=== PATIENT | male | born 1935 | race Caucasian/White ===

== ENCOUNTER 2016-11-23 20:09 | Emergency (ER) | payer MEDICARE, BC ==
--- NOTE | 2016-11-23 20:53 | EDM.PDOC ---
ED HPI GENERAL MEDICAL PROBLEM - General Chief Complaint: Cardiovascular Problem Stated Complaint: CHEST PAIN Time Seen by Provider: 11/23/16 20:29 Source of Information: Reports: Patient, Family (, son), RN Notes Reviewed History Limitations: Reports: No Limitations - History of Present Illness INITIAL COMMENTS - FREE TEXT/NARRATIVE: The patient states that he developed substernal chest discomfort around 18:30 while watching TV. It came on gradually. He is unable to characterize the sensation other than it feels like "air" or "pressure". He states that it is a discomfort, not a pain. He reports having very slight shortness of breath, but no nausea, diaphoresis, or anxiety. The patient took a single sublingual nitroglycerin around 18:45, which initially decreased his discomfort, but it increased again around 20:00. At this time, he is virtually asymptomatic. The patient states that he has had similar discomfort numerous times over the past several years, typically after eating something spicy. The patient underwent a coronary angiogram at [facility] on Sunday, 2016, which apparently found some coronary artery disease, but not significant enough to require stenting. 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 Chest Pain Score (Numeric/FACES): 3 - Related Data Allergies Allergy/AdvReac Type Severity Reaction Status Date / Time ciprofloxacin Allergy Hives Verified 11/23/16 20:16 levofloxacin Allergy Hives Verified 11/23/16 20:16 Penicillins Allergy Hives Verified 11/23/16 20:16 sulfamethoxazole Allergy Hives Verified 11/23/16 20:16 [From Bactrim] sulfanilamide [Sulfanilamide] Allergy Hives Verified 11/23/16 20:16 trimethoprim [From Bactrim] Allergy Hives Verified 11/23/16 20:16 zuclopenthixol Allergy Hives Verified 11/23/16 20:16 Home Meds: Home Meds Lisinopril 10 mg PO DAILY 04/05/16 [History] atorvaSTATin [Lipitor] 20 mg PO DAILY 04/05/16 [History] Aspirin [Ecotrin] 81 mg PO DAILY 11/23/16 [History] Isosorbide Mononitrate [Isosorbide Mononitrate ER] 30 mg PO DAILY 11/23/16 [ History] Metoprolol Tartrate 25 mg PO DAILY 11/23/16 [History] Nitroglycerin [Nitrostat] 0.4 mg SL Q5M 11/23/16 [History] Past Medical History HEENT History: Reports: Allergic Rhinitis Cardiovascular History: Reports: CAD, High Cholesterol, Hypertension Respiratory History: Reports: Sleep Apnea (nightly CPAP) Gastrointestinal History: Reports: GERD Psychiatric History: Reports: Depression Endocrine/Metabolic History: Reports: Obesity/BMI 30+ Oncologic (Cancer) History: Reports: Colon, Lung, Prostate - Past Surgical History Respiratory Surgical History: Reports: Lung Resection (Left upper lobectomy) GI Surgical History: Reports: Appendectomy, Colon (Hemicolectomy with colostomy , reversed), Colonoscopy, Other (See Below) (Undescended testicle) Male Surgical History: Reports: Prostatectomy Social & Family History - Tobacco Use Smoking Status *Q: Former Smoker Years of Tobacco use: 20 Packs/Tins Daily: 1 Used Tobacco, but Quit: Yes Month Tobacco Last Used: Quit early Second Hand Smoke Exposure: Yes - Alcohol Use Alcohol Use History: No - Recreational Drug Use Recreational Drug Use: No - Living Situation & Occupation Living situation: Reports: , with Spouse, with Family (Son) Occupation: Retired ED ROS GENERAL - Review of Systems Review Of Systems: See Below Constitutional: Reports: No Symptoms HEENT: Reports: No Symptoms Respiratory: Reports: No Symptoms Cardiovascular: Reports: No Symptoms Endocrine: Reports: No Symptoms GI/Abdominal: Reports: No Symptoms : Reports: No Symptoms Musculoskeletal: Reports: No Symptoms Skin: Reports: No Symptoms Neurological: Reports: No Symptoms Psychiatric: Reports: No Symptoms Hematologic/Lymphatic: Reports: No Symptoms Immunologic: Reports: No Symptoms ED EXAM, GENERAL - Physical Exam Exam: See Below Exam Limited By: No Limitations General Appearance: Alert, WD/WN, No Apparent Distress Eye Exam: Bilateral Eye: Normal Inspection Ears: Normal External Exam, Hearing Grossly Normal Nose: Normal Inspection, No Blood Throat/Mouth: Normal Inspection, Normal Lips, Normal Voice, No Airway Compromise Head: Atraumatic, Normocephalic Neck: Normal Inspection, Full Range of Motion Respiratory/Chest: No Respiratory Distress, Lungs Clear, Normal Breath Sounds, No Accessory Muscle Use, Chest Non-Tender Cardiovascular: Normal Peripheral Pulses, Regular Rate, Rhythm, No Gallop, No JVD, No Murmur, No Rub Peripheral Pulses: 4+: Radial (L), Radial (R) GI/Abdominal: Normal Bowel Sounds, Soft, Non-Tender, No Organomegaly, No Distention, No Abnormal Bruit, No Mass, Other (Obese) (Male) Exam: Deferred Rectal (Males) Exam: Deferred Back Exam: Normal Inspection, Full Range of Motion, NT Extremities: Normal Inspection, Normal Range of Motion, No Pedal Edema, Normal Capillary Refill Neurological: Alert, Oriented, Normal Cognition, No Motor/Sensory Deficits Psychiatric: Normal Affect Skin Exam: Warm, Dry, Intact, Normal Color, No Rash Lymphatic: No Adenopathy EKG INTERPRETATION EKG Date: 11/23/16 Time: 20:15 Rhythm: NSR Rate (Beats/Min): 84 [place]: Normal P-Wave: Present (1st degree AVB) QRS: Normal ST-T: Normal QT: Normal Comparison: NA - No Prior EKG EKG Interpretation Comments: 3 PVC's Course - Vital Signs Last Recorded V/S: Last Vital Signs Temp 36.9 C 11/23/16 20:12 Pulse 74 11/23/16 21:17 Resp 18 11/23/16 21:17 BP 154/76 H 11/23/16 21:17 Pulse Ox 92 L 11/23/16 21:17 - Orders/Labs/Meds Orders: Active Orders 24 hr Category Date Time Status EKG 12 Lead [EKG Documentation Completion] [RC] STAT Care 11/23/16 20:27 Active Chest 1V Frontal [CR] Stat Exams 11/23/16 20:28 Taken Labs: Laboratory Tests 11/23/16 11/23/16 11/23/16 Range/Units 20:15 20:15 20:15 WBC 9.84 H (4.23-9.07) K/mm3 RBC 4.35 L (4.63-6.08) M/mm3 Hgb 12.7 L (13.7-17.5) gm/L Hct 39.0 L (40.1-51.0) % MCV 89.7 (79.0-92.2) fl MCH 29.2 (25.7-32.2) pg MCHC 32.6 (32.2-35.5) g/dl RDW Std Deviation 43.0 (35.1-43.9) fL Plt Count 244 (163-337) K/mm3 MPV 9.9 (9.4-12.3) fl Neut % (Auto) 67.1 (34.0-67.9) % Lymph % (Auto) 20.3 L (21.8-53.1) % [place] % (Auto) 11.0 (5.3-12.2) % Eos % (Auto) 1.2 (0.8-7.0) Baso % (Auto) 0.3 (0.1-1.2) % Neut # (Auto) 6.60 H (1.78-5.38) K/mm3 Lymph # (Auto) 2.00 (1.32-3.57) K/mm3 [place] # (Auto) 1.08 H (0.30-0.82) K/mm3 Eos # (Auto) 0.12 (0.04-0.54) K/mm3 Baso # (Auto) 0.03 (0.01-0.08) K/mm3 PT (8.0-13.0) SECONDS INR APTT (22-36) SECONDS D-Dimer, Quantitative < 0.19 L (0.19-0.59) mg/L Sodium 138 (136-145) mEq/L Potassium 4.0 (3.5-5.1) mEq/L Chloride 105 (98-107) mEq/L Carbon Dioxide 27 (21-32) mEq/L Anion Gap 10.0 (5-15) BUN 23 H (7-18) mg/dL Creatinine 1.4 H (0.7-1.3) mg/dL Est Cr Clr Drug Dosing TNP Estimated GFR (MDRD) 49 (>60) mL/min BUN/Creatinine Ratio 16.4 (14-18) Glucose 204 H (83-115) mg/dL Calcium 9.1 (8.5-10.1) mg/dL Total Bilirubin 0.3 (0.2-1.0) mg/dL AST 16 (15-37) U/L ALT 24 (16-63) U/L Alkaline Phosphatase 74 (46-116) U/L Troponin I < 0.017 (0.00-0.056) ng/mL B-Natriuretic Peptide (0-100) pg/mL Total Protein 7.7 (6.4-8.2) g/dl Albumin 3.6 (3.4-5.0) g/dl Globulin 4.1 gm/dL Albumin/Globulin Ratio 0.9 L (1-2) 11/23/16 11/23/16 Range/Units 20:15 20:15 WBC (4.23-9.07) K/mm3 RBC (4.63-6.08) M/mm3 Hgb (13.7-17.5) gm/L Hct (40.1-51.0) % MCV (79.0-92.2) fl MCH (25.7-32.2) pg MCHC (32.2-35.5) g/dl RDW Std Deviation (35.1-43.9) fL Plt Count (163-337) K/mm3 MPV (9.4-12.3) fl Neut % (Auto) (34.0-67.9) % Lymph % (Auto) (21.8-53.1) % [place] % (Auto) (5.3-12.2) % Eos % (Auto) (0.8-7.0) Baso % (Auto) (0.1-1.2) % Neut # (Auto) (1.78-5.38) K/mm3 Lymph # (Auto) (1.32-3.57) K/mm3 [place] # (Auto) (0.30-0.82) K/mm3 Eos # (Auto) (0.04-0.54) K/mm3 Baso # (Auto) (0.01-0.08) K/mm3 PT 11.4 (8.0-13.0) SECONDS INR 1.04 APTT 31 (22-36) SECONDS D-Dimer, Quantitative (0.19-0.59) mg/L Sodium (136-145) mEq/L Potassium (3.5-5.1) mEq/L Chloride (98-107) mEq/L Carbon Dioxide (21-32) mEq/L Anion Gap (5-15) BUN (7-18) mg/dL Creatinine (0.7-1.3) mg/dL Est Cr Clr Drug Dosing Estimated GFR (MDRD) (>60) mL/min BUN/Creatinine Ratio (14-18) Glucose (83-115) mg/dL Calcium (8.5-10.1) mg/dL Total Bilirubin (0.2-1.0) mg/dL AST (15-37) U/L ALT (16-63) U/L Alkaline Phosphatase (46-116) U/L Troponin I (0.00-0.056) ng/mL B-Natriuretic Peptide 385 H (0-100) pg/mL Total Protein (6.4-8.2) g/dl Albumin (3.4-5.0) g/dl Globulin gm/dL Albumin/Globulin Ratio (1-2) - Radiology Interpretation Free Text/Narrative:: Portable chest radiograph appears to be grossly unremarkable. Cardiac silhouette is within normal limits. No pulmonary vascular congestion. No pleural effusions. No focal infiltrate. No pneumothorax. Formal read per the Radiologist pending. - Re-Assessments/Exams Free Text/Narrative Re-Assessment/Exam: 11/23/16 21:35 Test results discussed with the patient and his . From a cardiac standpoint , today's workup is unremarkable. While his presentation was concerning for cardiac etiology, he had an unremarkable coronary angiogram just a few weeks ago. The patient's blood glucose was found to be elevated at 204, despite no known history of diabetes. The patient states that he is feeling briskly fine at this time. I will discharge him home, but I'm recommending that he contact his [employer]in[employer] (Dr. Hill?) in the morning. I am also recommending that he follow-up with his PCP, Dr. Sena, for diabetes evaluation. Departure - Departure Time of Disposition: 21:37 Disposition: Home, Self-Care 01 Condition: Good Clinical Impression: Chest pain Instructions: Nonspecific Chest Pain, [id number] Referrals: Yonas Sena MD [Primary Care Provider] - Mello Hill DO [Ordering Only Provider] - Forms: ED Department Discharge Additional Instructions: You were seen in the emergency room for chest pain. Workup in the ER included blood work, an ECG, and a chest x-ray. From a cardiac standpoint, your workup was unremarkable. It does not appear that you have suffered a heart attack. Although unlikely, it is still possible that your pain was cardiac in nature, therefore we recommend that you contact your [employer]in[employer], Dr. Mello Hill, tomorrow morning. Your blood glucose was found to be elevated at 204. You may have diabetes. We recommend that you follow-up with your PCP, Dr. Sena, at the next available appointment. If any other problems, including recurrence of your chest pain, please do not hesitate to return to the ER. - My Orders Last 24 Hours: My Active Orders 11/23/16 20:27 EKG 12 Lead [EKG Documentation Completion] [RC] STAT - Assessment/Plan Last 24 Hours: My Active Orders 11/23/16 20:27 EKG 12 Lead [EKG Documentation Completion] [RC] STAT
[2016-11-23 21:18] VITALS: BP 154/76
--- NOTE | 2016-11-24 09:37 | CR ---
Chest: Frontal view of the chest was obtained. Comparison: No previous chest x-ray, previous chest CT of 04/14/14 is available. Findings: Heart size slightly enlarged but accentuated from portable technique. Mild shifting of the heart into the left chest is seen which is stable from prior chest CT. Mild areas of increased density within the left chest most likely due to areas of fibrosis. I do not believe any acute infiltrates are present. Bony structures appear grossly intact. Impression: 1. Findings as described above believed to be stable from prior chest CT. 2. Nothing acute is definitely appreciated. Diagnostic code #2
== END 2016-11-23 21:56 | disposition home or self-care (01) ==
LOC: JD.ED 20:09 → SUPCPDRO 20:09 → JD.ED 21:56
DX: R07.2 Precordial pain (principal); I10 Essential (primary) hypertension; I25.10 Atherosclerotic heart disease of native coronary artery without angina pectoris; R06.02 Shortness of breath; E78.00 Pure hypercholesterolemia, unspecified; G47.30 Sleep apnea, unspecified; K21.9 Gastro-esophageal reflux disease without esophagitis; F41.9 Anxiety disorder, unspecified; E66.9 Obesity, unspecified; Z90.49 Acquired absence of other specified parts of digestive tract; Z85.038 Personal history of other malignant neoplasm of large intestine; Z85.46 Personal history of malignant neoplasm of prostate; Z87.891 Personal history of nicotine dependence; Z90.79 Acquired absence of other genital organ(s); Z79.82 Long term (current) use of aspirin; Z79.899 Other long term (current) drug therapy; Z88.0 Allergy status to penicillin; Z88.1 Allergy status to other antibiotic agents; Z88.2 Allergy status to sulfonamides
CPT/HCPCS: 36415; 71010; 71010-26; 80053; 83880; 84484; 85025; 85379; 85610; 85730; 93005; 99284; 99285-25

== ENCOUNTER 2018-08-12 06:20 | Emergency (ER) | payer MEDICARE, BC ==
--- NOTE | 2018-08-12 06:56 | EDM.PDOC ---
<SkylerShaheen oconnor Momo - Last Filed: 08/12/18 08:46> ED HPI GENERAL MEDICAL PROBLEM - General Chief Complaint: General Stated Complaint: CHEST/STOMACH PAIN Time Seen by Provider: 08/12/18 06:40 Source of Information: Reports: Patient, RN Notes Reviewed - History of Present Illness INITIAL COMMENTS - FREE TEXT/NARRATIVE: 83 year old male with onset of upper abd achy pain last evening that has continued through the night. The pain became more severe at home a a couple of hrs ago, now somewhat better. He has had nausea with this, no vomiting. No current fever or chills. He was coughing quite a lot about 4 to 5 days ago but that is now better. No current chest pain or difficulty breathing. Last BM yesterday. He feels "bloated". Not passing gas this morning, felt better after bleching". History just evaluated at [facility] last week, had colonoscopy which was normal as well as other workup. Was a follow-up visit from colon cancer about 8- 10 years ago. - Related Data Allergies Allergy/AdvReac Type Severity Reaction Status Date / Time ciprofloxacin Allergy Hives Verified 08/12/18 06:29 levofloxacin Allergy Hives Verified 08/12/18 06:29 Penicillins Allergy Hives Verified 08/12/18 06:29 Quinolones Allergy Burning Verified 08/12/18 06:29 sulfamethoxazole Allergy Hives Verified 08/12/18 06:29 [From Bactrim] sulfanilamide [Sulfanilamide] Allergy Hives Verified 08/12/18 06:29 trimethoprim [From Bactrim] Allergy Hives Verified 08/12/18 06:29 Home Meds: Home Meds RX: atorvaSTATin [Lipitor] 20 mg PO DAILY 04/05/16 [History] RX: Aspirin [Ecotrin] 81 mg PO DAILY 11/23/16 [History] RX: Isosorbide Mononitrate [Isosorbide Mononitrate ER] 30 mg PO DAILY 11/23/16 [ History] RX: Metoprolol Tartrate 25 mg PO BID 11/23/16 [History] RX: Nitroglycerin [Nitrostat] 0.4 mg SL Q5M 11/23/16 [History] RX: Cholecalciferol (Vitamin D3) [Vitamin D3] 1,000 unit PO DAILY 03/06/18 [ History] RX: Losartan [Cozaar] 50 mg PO DAILY 03/06/18 [History] traMADol HCl [Ultram] 50 - 100 mg PO Q6H PRN #15 tablet 03/07/18 [Rx] ED ROS GENERAL - Review of Systems Review Of Systems: See Below Constitutional: Denies: Fever, Chills, Diaphoresis HEENT: Denies: Throat Pain Respiratory: Reports: Cough. Denies: Shortness of Breath, Pleuritic Chest Pain Cardiovascular: Denies: Chest Pain GI/Abdominal: Reports: Abdominal Pain, Nausea. Denies: Constipation, Diarrhea, Vomiting Skin: Reports: No Symptoms Neurological: Reports: Dizziness Course - Vital Signs Last Recorded V/S: Last Vital Signs Temp 36.2 C 08/12/18 06:26 Pulse 86 08/12/18 09:29 Resp 17 08/12/18 09:29 BP 184/80 H 08/12/18 09:29 Pulse Ox 93 L 08/12/18 09:29 - Orders/Labs/Meds Orders: Active Orders 24 hr Category Date Time Status EKG Documentation Completion [RC] ASDIRECTED Care 08/12/18 06:35 Active Peripheral IV Care [RC] . DIRECTED Care 08/12/18 07:04 Active Peripheral IV Insertion Adult [OM.PC] Stat Oth 08/12/18 07:04 Ordered EKG 12 Lead [EK] Stat Ther 08/12/18 06:35 Ordered Labs: Laboratory Tests 08/12/18 08/12/18 08/12/18 Range/Units 07:30 07:30 07:30 WBC 12.38 H (4.23-9.07) K/mm3 RBC 4.91 (4.63-6.08) M/mm3 Hgb 14.0 (13.7-17.5) gm/L Hct 43.6 (40.1-51.0) % MCV 88.8 (79.0-92.2) fl MCH 28.5 (25.7-32.2) pg MCHC 32.1 L (32.2-35.5) g/dl RDW Std Deviation 42.4 (35.1-43.9) fL Plt Count 238 (163-337) K/mm3 MPV 9.4 (9.4-12.3) fl Neut % (Auto) 87.2 H (34.0-67.9) % Lymph % (Auto) 6.9 L (21.8-53.1) % [place] % (Auto) 5.3 (5.3-12.2) % Eos % (Auto) 0.2 L (0.8-7.0) Baso % (Auto) 0.2 (0.1-1.2) % Neut # (Auto) 10.78 H (1.78-5.38) K/mm3 Lymph # (Auto) 0.85 L (1.32-3.57) K/mm3 [place] # (Auto) 0.66 (0.30-0.82) K/mm3 Eos # (Auto) 0.03 L (0.04-0.54) K/mm3 Baso # (Auto) 0.03 (0.01-0.08) K/mm3 Manual Slide Review Abnormal smear Sodium 139 (136-145) mEq/L Potassium 4.1 (3.5-5.1) mEq/L Chloride 102 (98-107) mEq/L Carbon Dioxide 26 (21-32) mEq/L Anion Gap 15.1 H (5-15) BUN 19 H (7-18) mg/dL Creatinine 1.2 (0.7-1.3) mg/dL Est Cr Clr Drug Dosing 39.74 mL/min Estimated GFR (MDRD) 58 (>60) mL/min BUN/Creatinine Ratio 15.8 (14-18) Glucose 176 H (83-115) mg/dL Calcium 8.9 (8.5-10.1) mg/dL Total Bilirubin 0.4 (0.2-1.0) mg/dL AST 24 (15-37) U/L ALT 28 (16-63) U/L Alkaline Phosphatase 82 (46-116) U/L Troponin I < 0.017 (0.00-0.056) ng/mL C-Reactive Protein 1.0 (<1.0) mg/dL Total Protein 8.0 (6.4-8.2) g/dl Albumin 3.6 (3.4-5.0) g/dl Globulin 4.4 gm/dL Albumin/Globulin Ratio 0.8 L (1-2) Meds: Medications Discontinued Medications Generic Name Dose Route Start Last Admin Trade Name Freq PRN Reason Stop Dose Admin Hydromorphone HCl 0.5 mg 08/12/18 07:44 08/12/18 07:48 Dilaudid IVPUSH 08/12/18 07:45 0.5 mg ONETIME ONE Administration Sodium Chloride 500 mls @ 999 mls/hr 08/12/18 07:05 08/12/18 07:38 Normal Saline IV 08/12/18 07:35 999 mls/hr .BOLUS ONE Administration Magnesium Hydroxide 30 ml 08/12/18 08:45 08/12/18 09:17 Milk Of Magnesia PO 08/12/18 08:46 30 ml ONETIME ONE Administration Ondansetron HCl 4 mg 08/12/18 07:34 08/12/18 07:43 Zofran IVPUSH 4 mg Q8H PRN Administration Nausea Sodium Chloride 10 ml 08/12/18 07:04 08/12/18 07:30 Saline Flush FLUSH 10 ml ASDIRECTED PRN Administration Keep Vein Open Departure - Departure Time of Disposition: 08:47 Disposition: Home, Self-Care 01 Condition: Fair (Abdominal pain) Clinical Impression: Abdominal pain Qualifiers: Abdominal location: generalized Qualified Code(s): R10.84 - Generalized abdominal pain - Discharge Information Instructions: Abdominal Pain, Adult, [id number] Referrals: Yonas Sena MD [Primary Care Provider] - Forms: ED Department Discharge Additional Instructions: Clear liquids until this evening, than very careful bland diet as tolerated. You have been given milk of mag, a mild laxative while here in the ED. You also been given Zofran for nausea and Dilaudid IV for pain. Do not drive the remainder of today due to sedative effect of medication given. Follow-up with your regular medical provider if not getting back to normal within 1-2 days as expected. Return to ED as needed if symptoms worsening in any way. - My Orders Last 24 Hours: My Active Orders 08/12/18 06:35 EKG Documentation Completion [RC] ASDIRECTED EKG 12 Lead [EK] Stat - Assessment/Plan Last 24 Hours: My Active Orders 08/12/18 06:35 EKG Documentation Completion [RC] ASDIRECTED EKG 12 Lead [EK] Stat <Ruel Plascencia - Last Filed: 08/13/18 02:30> ED HPI GENERAL MEDICAL PROBLEM Abdomen Pain Score (Numeric/FACES): 3 Past Medical History HEENT History: Reports: Allergic Rhinitis, Impaired Vision, Other (See Below) Other HEENT History: glasses, dentures Cardiovascular History: Reports: Angina, CAD, High Cholesterol, Hypertension, Other (See Below) Other Cardiovascular History: 1 degree AV block, PVCs Respiratory History: Reports: Sleep Apnea Other Respiratory History: CPAP Gastrointestinal History: Reports: GERD, Other (See Below) Other Gastrointestinal History: colon cancer 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 Musculoskeletal History: Reports: Back Pain, Chronic, Neck Pain, Chronic Neurological History: Reports: None Psychiatric History: Reports: Depression Endocrine/Metabolic History: Reports: Diabetes, Type II, Obesity/BMI 30+ Hematologic History: Reports: None Immunologic History: Reports: None Oncologic (Cancer) History: Reports: Colon, Lung, Prostate Dermatologic History: Reports: None - Past Surgical History Head Surgeries/Procedures: Reports: None HEENT Surgical History: Reports: Cataract Surgery Cardiovascular Surgical History: Reports: None Respiratory Surgical History: Reports: Lung Resection, Thoracotomy GI Surgical History: Reports: Appendectomy, Colon, Colonoscopy, Other (See Below ) Other GI Surgeries/Procedures: hemicolectomy Male Surgical History: Reports: Prostatectomy Endocrine Surgical History: Reports: None Neurological Surgical History: Reports: Other (See Below) Other Neurological Surgeries/Procedures: spinal stenosis Musculoskeletal Surgical History: Reports: Other (See Below) Other Musculoskeletal Surgeries/Procedures:: right long finger pain Oncologic Surgical History: Reports: None Dermatological Surgical History: Reports: None Social & Family History - Tobacco Use Smoking Status *Q: Never Smoker - Caffeine Use Caffeine Use: Reports: Coffee, Tea - Living Situation & Occupation Living situation: Reports: , with Spouse, with Family (Son) Occupation: Retired ED EXAM, GENERAL - Physical Exam Exam: See Below Exam Limited By: No Limitations General Appearance: Alert, No Apparent Distress Head: Atraumatic, Normocephalic Neck: Normal Inspection, Supple, Non-Tender, Full Range of Motion Respiratory/Chest: No Respiratory Distress, Lungs Clear, Normal Breath Sounds Cardiovascular: Regular Rate, Rhythm, No Edema, No Murmur GI/Abdominal: Soft, Distended, Other (Diffuse general tenderness nonlocalized) Back Exam: Normal Inspection. No: CVA Tenderness (L), CVA Tenderness (R) Course - Orders/Labs/Meds Labs: Laboratory Tests 08/12/18 08/12/1808/12/19 Range/Units 07:30 07:30 07:30 WBC 12.38 H (4.23-9.07) K/mm3 RBC 4.91 (4.63-6.08) M/mm3 Hgb 14.0 (13.7-17.5) gm/L Hct 43.6 (40.1-51.0) % MCV 88.8 (79.0-92.2) fl MCH 28.5 (25.7-32.2) pg MCHC 32.1 L (32.2-35.5) g/dl RDW Std Deviation 42.4 (35.1-43.9) fL Plt Count 238 (163-337) K/mm3 MPV 9.4 (9.4-12.3) fl Neut % (Auto) 87.2 H (34.0-67.9) % Lymph % (Auto) 6.9 L (21.8-53.1) % [place] % (Auto) 5.3 (5.3-12.2) % Eos % (Auto) 0.2 L (0.8-7.0) Baso % (Auto) 0.2 (0.1-1.2) % Neut # (Auto) 10.78 H (1.78-5.38) K/mm3 Lymph # (Auto) 0.85 L (1.32-3.57) K/mm3 [place] # (Auto) 0.66 (0.30-0.82) K/mm3 Eos # (Auto) 0.03 L (0.04-0.54) K/mm3 Baso # (Auto) 0.03 (0.01-0.08) K/mm3 Manual Slide Review Abnormal smear Sodium 139 (136-145) mEq/L Potassium 4.1 (3.5-5.1) mEq/L Chloride 102 (98-107) mEq/L Carbon Dioxide 26 (21-32) mEq/L Anion Gap 15.1 H (5-15) BUN 19 H (7-18) mg/dL Creatinine 1.2 (0.7-1.3) mg/dL Est Cr Clr Drug Dosing 39.74 mL/min Estimated GFR (MDRD) 58 (>60) mL/min BUN/Creatinine Ratio 15.8 (14-18) Glucose 176 H (83-115) mg/dL Calcium 8.9 (8.5-10.1) mg/dL Total Bilirubin 0.4 (0.2-1.0) mg/dL AST 24 (15-37) U/L ALT 28 (16-63) U/L Alkaline Phosphatase 82 (46-116) U/L Troponin I < 0.017 (0.00-0.056) ng/mL C-Reactive Protein 1.0 (<1.0) mg/dL Total Protein 8.0 (6.4-8.2) g/dl Albumin 3.6 (3.4-5.0) g/dl Globulin 4.4 gm/dL Albumin/Globulin Ratio 0.8 L (1-2) Meds: Medications Discontinued Medications Generic Name Dose Route Start Last Admin Trade Name Freq PRN Reason Stop Dose Admin Hydromorphone HCl 0.5 mg 08/12/18 07:44 08/12/18 07:48 Dilaudid IVPUSH 08/12/18 07:45 0.5 mg ONETIME ONE Administration Sodium Chloride 500 mls @ 999 mls/hr 08/12/18 07:05 08/12/18 07:38 Normal Saline IV 08/12/18 07:35 999 mls/hr .BOLUS ONE Administration Magnesium Hydroxide 30 ml 08/12/18 08:45 08/12/18 09:17 Milk Of Magnesia PO 08/12/18 08:46 30 ml ONETIME ONE Administration Ondansetron HCl 4 mg 08/12/18 07:34 08/12/18 07:43 Zofran IVPUSH 4 mg Q8H PRN Administration Nausea Sodium Chloride 10 ml 08/12/18 07:04 08/12/18 07:30 Saline Flush FLUSH 10 ml ASDIRECTED PRN Administration Keep Vein Open
[2018-08-12] MEDS ORDERED: Sodium Chloride 0.9% 10 ML Syringe FLUSH PRN (07:04)
[2018-08-12] MEDS ORDERED: Sodium Chloride 0.9% 500 ML IV ONE (07:05)
[2018-08-12] MEDS ORDERED: Ondansetron 4 MG/2 ML SDV IVPUSH PRN (07:34)
[2018-08-12] MEDS ORDERED: HYDROmorphone 1 MG/ML Syringe IVPUSH ONE (07:44)
[2018-08-12] MEDS ORDERED: Magnesium Hydroxide 400 MG/5 ML Susp 30 ML Cup PO ONE (08:45)
--- NOTE | 2018-08-12 09:13 | CR ---
Abdominal series: Supine and upright views of the abdomen were obtained as well as frontal view of the chest. Comparison: Prior chest x-ray of 11/23/16 Increased interstitial perihilar change is noted from prior chest x-ray raising the possibility of bronchitis versus worsening fibrosis. Lungs otherwise are clear. Surgical clips are seen within the pelvis. Bowel gas pattern is normal. Degenerative spurring is seen within the spine. No free air is seen. Impression: 1. Increasing perihilar interstitial change from prior chest x-ray raising the possibility of bronchitis versus worsening fibrosis. 2. Other incidental findings. Nothing acute is otherwise seen. Diagnostic code #3
[2018-08-12 19:49] VITALS: BP 184/80
== END 2018-08-12 09:29 | disposition home or self-care (01) ==
LOC: JD.ED 06:20
DX: R10.84 Generalized abdominal pain (principal); I10 Essential (primary) hypertension; I25.10 Atherosclerotic heart disease of native coronary artery without angina pectoris; E11.9 Type 2 diabetes mellitus without complications; E66.9 Obesity, unspecified; Z88.1 Allergy status to other antibiotic agents; Z88.0 Allergy status to penicillin; Z88.2 Allergy status to sulfonamides; Z88.8 Allergy status to other drugs, medicaments and biological substances; Z79.82 Long term (current) use of aspirin
CPT/HCPCS: 36415; 74022; 80053; 84484; 85025; 86140; 93005; 96361; 96374; 96375; 99284; A9270; J1170; J2405; J7040